=== PATIENT | female | born 1980 | race African-American/Black ===

== ENCOUNTER 2016-09-03 11:16 | Emergency (ER) | payer MEDICAID, OTHER ==
[~2016-09-03] VITALS: Ht 172.7 cm; Wt 100.0 kg
[2016-09-03 11:19] VITALS: BP 184/90; PULSE 87; RESP 17; TEMP 97.9; O2SAT 98
[2016-09-03 11:35] LABS: MEAN CORPUSCULAR HGB CONC 28.5 % (32.0-36.0)
--- NOTE | 2016-09-03 11:43 | PD ---
HPI Chief Complaint: Abdominal Pain Time Seen by Provider: 11:39 Travel History International Travel<30 days: No Contact w/Intl Traveler<30days: No History of Present Illness HPI Patient's 36-year-old female presenting to emergency department for evaluation of lower abdominal pain. Patient states pain is ongoing for several days however is worse today. She states is crampy in nature, her pain is a 4 out of 10. She also reports heavy vaginal discharge that is yellow-green in color with a slight odor to it. She also reports urinary frequency and slight dysuria. She denies any nausea, vomiting, fever, chills, chest pain, shortness of breath. Her last menstrual period was 2 weeks ago. Patient had a bilateral tubal ligation. She denies any significant past medical history. [facility] Past Medical History Medical History: Denies Significant Hx Past Surgical History Gynecologic Surgery: Yes (BTL) Social History Alcohol Use: No Tobacco Use: No Substance Use: No Allergies-Medications (Allergen,Severity, Reaction): Coded Allergies: No Known Allergies (Verified , 09/03/16) Reported Meds & Prescriptions Reported Meds & Active Scripts Active Keflex (Cephalexin) 500 Mg Cap 500 Mg PO Q12H Review of Systems Except as stated in HPI: all other systems reviewed are Neg General / Constitutional: No: Fever, Chills HENT: No: Headaches Cardiovascular: No: Chest Pain or Discomfort Respiratory: No: Shortness of Breath Gastrointestinal: Positive: Abdominal Pain, No: Nausea, Vomiting, Diarrhea Genitourinary: Positive: Frequency, Dysuria, Discharge Neurologic: No: Focal Abnormalities Physical Exam Narrative GENERAL: Developed, well nourished, alert female. Resting comfortably in no acute distress. SKIN: Warm and dry. HEAD: Atraumatic. Normocephalic. EYES: Pupils equal and round. No scleral icterus. No injection or drainage. ENT: No nasal bleeding or discharge. Mucous membranes pink and moist. NECK: Trachea midline. No JVD. CARDIOVASCULAR: Regular rate and rhythm. No murmur appreciated. RESPIRATORY: No accessory muscle use. Clear to auscultation. Breath sounds equal bilaterally. GASTROINTESTINAL: Abdomen soft, tender to palpation in suprapubic region, nondistended. Hepatic and splenic margins not palpable. Positive bowel sounds. MUSCULOSKELETAL: No obvious deformities. No clubbing. No cyanosis. No edema. NEUROLOGICAL: Awake and alert. No obvious cranial nerve deficits. Motor grossly within normal limits. Normal speech. PSYCHIATRIC: Appropriate mood and affect; insight and judgment normal. GENITOURINARY: Yellow/green discharge noted in vaginal vault. Positive cervical motion tenderness. Data Data Last Documented VS Vital Signs Date Time Temp Pulse Resp B/P Pulse Ox O2 Delivery O2 Flow Rate FiO2 09/03/16 11:19 97.9 87 17 184/90 98 Orders Complete Blood Count With Diff (09/03/16 11:34) Comprehensive Metabolic Panel (09/03/16 11:34) Gc And Chlamydia Pcr (09/03/16 11:34) Wet Prep Profile (09/03/16 11:34) Urinalysis - C+S If Indicated (09/03/16 11:34) Iv Access Insert/Monitor (09/03/16 11:34) Sodium Chloride 0.9% Flush (Ns Flush) (09/03/16 11:45) Ed Urine Pregnancytest Poc (09/03/16 11:34) Urine Culture (09/03/16 11:45) Us Pelvis Comp W Dop Transvag (09/03/16 ) Metronidazole (Flagyl) (09/03/16 13:15) Ondansetron Odt (Zofran Odt) (09/03/16 13:15) Labs Laboratory Tests Test 09/03/16 09/03/16 11:45 12:30 White Blood Count 7.8 TH/MM3 Red Blood Count 5.29 MIL/MM3 Hemoglobin 8.0 GM/DL Hematocrit 28.1 % Mean Corpuscular Volume 53.2 FL Mean Corpuscular Hemoglobin 15.1 PG Mean Corpuscular Hemoglobin 28.5 % Concent Red Cell Distribution Width 25.4 % Platelet Count 188 TH/MM3 Mean Platelet Volume 9.8 FL Neutrophils (%) (Auto) 61.0 % Lymphocytes (%) (Auto) 29.4 % Monocytes (%) (Auto) 7.7 % Eosinophils (%) (Auto) 1.2 % Basophils (%) (Auto) 0.7 % Neutrophils # (Auto) 4.7 TH/MM3 Lymphocytes # (Auto) 2.3 TH/MM3 Monocytes # (Auto) 0.6 TH/MM3 Eosinophils # (Auto) 0.1 TH/MM3 Basophils # (Auto) 0.1 TH/MM3 CBC Comment AUTO DIFF Differential Comment AUTO DIFF CONFIRMED Platelet Estimate NORMAL Platelet Morphology Comment ENLARGED Urine Color YELLOW Urine Turbidity CLEAR Urine pH 6.0 Urine Specific Mcgrady 1.018 Urine Protein NEG mg/dL Urine Glucose (UA) NEG mg/dL Urine Ketones NEG mg/dL Urine Occult Blood NEG Urine Nitrite NEG Urine Bilirubin NEG Urine Urobilinogen LESS THAN 2.0 MG/DL Urine Leukocyte Esterase LARGE Urine RBC 1 /hpf Urine WBC 9 /hpf Urine Squamous Epithelial <1 /hpf Cells Urine Bacteria OCC /hpf Urine Mucus FEW /lpf Microscopic Urinalysis Comment CULTURE INDICATED Sodium Level 139 MEQ/L Potassium Level 3.9 MEQ/L Chloride Level 106 MEQ/L Carbon Dioxide Level 25.3 MEQ/L Anion Gap 8 MEQ/L Blood Urea Nitrogen 7 MG/DL Creatinine 0.76 MG/DL Estimat Glomerular Filtration 103 ML/MIN Rate Random Glucose 114 MG/DL Calcium Level 8.5 MG/DL Total Bilirubin 0.3 MG/DL Aspartate Amino Transf 14 U/L (AST/SGOT) Alanine Aminotransferase 13 U/L (ALT/SGPT) Alkaline Phosphatase 73 U/L Total Protein 7.7 GM/DL Albumin 3.5 GM/DL Clue Cells (Wet Prep) NONE SEEN Vaginal Trichomonas (Wet Prep) PRESENT Vaginal Yeast (Wet Prep) NONE SEEN MDM Medical Decision Making Medical Screen Exam Complete: Yes Emergency Medical Condition: Yes Interpretation(s) Last Impressions Abdomen/Pelvis/Transvag US 09/03/16 0000 Signed Impressions: Service Date/Time: Saturday, September 03, 2016 12:52 - CONCLUSION: 1. No acute abnormality is identified. 2. There is a 3.1 cm solid mass in the left aspect of the uterine fundus. Imaging features are characteristic of an intramural leiomyoma. Jalil Lynch MD Laboratory Tests Test 09/03/16 09/03/16 11:45 12:30 White Blood Count 7.8 TH/MM3 Red Blood Count 5.29 MIL/MM3 Hemoglobin 8.0 GM/DL Hematocrit 28.1 % Mean Corpuscular Volume 53.2 FL Mean Corpuscular Hemoglobin 15.1 PG Mean Corpuscular Hemoglobin 28.5 % Concent Red Cell Distribution Width 25.4 % Platelet Count 188 TH/MM3 Mean Platelet Volume 9.8 FL Neutrophils (%) (Auto) 61.0 % Lymphocytes (%) (Auto) 29.4 % Monocytes (%) (Auto) 7.7 % Eosinophils (%) (Auto) 1.2 % Basophils (%) (Auto) 0.7 % Neutrophils # (Auto) 4.7 TH/MM3 Lymphocytes # (Auto) 2.3 TH/MM3 Monocytes # (Auto) 0.6 TH/MM3 Eosinophils # (Auto) 0.1 TH/MM3 Basophils # (Auto) 0.1 TH/MM3 CBC Comment AUTO DIFF Differential Comment AUTO DIFF CONFIRMED Platelet Estimate NORMAL Platelet Morphology Comment ENLARGED Urine Color YELLOW Urine Turbidity CLEAR Urine pH 6.0 Urine Specific Mcgrady 1.018 Urine Protein NEG mg/dL Urine Glucose (UA) NEG mg/dL Urine Ketones NEG mg/dL Urine Occult Blood NEG Urine Nitrite NEG Urine Bilirubin NEG Urine Urobilinogen LESS THAN 2.0 MG/DL Urine Leukocyte Esterase LARGE Urine RBC 1 /hpf Urine WBC 9 /hpf Urine Squamous Epithelial <1 /hpf Cells Urine Bacteria OCC /hpf Urine Mucus FEW /lpf Microscopic Urinalysis Comment CULTURE INDICATED Sodium Level 139 MEQ/L Potassium Level 3.9 MEQ/L Chloride Level 106 MEQ/L Carbon Dioxide Level 25.3 MEQ/L Anion Gap 8 MEQ/L Blood Urea Nitrogen 7 MG/DL Creatinine 0.76 MG/DL Estimat Glomerular Filtration 103 ML/MIN Rate Random Glucose 114 MG/DL Calcium Level 8.5 MG/DL Total Bilirubin 0.3 MG/DL Aspartate Amino Transf 14 U/L (AST/SGOT) Alanine Aminotransferase 13 U/L (ALT/SGPT) Alkaline Phosphatase 73 U/L Total Protein 7.7 GM/DL Albumin 3.5 GM/DL Clue Cells (Wet Prep) NONE SEEN Vaginal Trichomonas (Wet Prep) PRESENT Vaginal Yeast (Wet Prep) NONE SEEN Vital Signs Date Time Temp Pulse Resp B/P Pulse Ox O2 Delivery O2 Flow Rate FiO2 09/03/16 11:19 97.9 87 17 184/90 98 Differential Diagnosis UTI versus BV versus STD versus pyelonephritis versus colitis versus other Narrative Course Patient is a 36-year-old female presented to emergency for evaluation of suprapubic pain, painful intercourse, vaginal discharge and dysuria. Pelvic pain started several days ago the patient reports painful intercourse over the last month. She denies any risky sexual practices, she is in a monogamous relationship. Pelvic exam was positive for cervical motion tenderness, green frothy discharge. Wet prep, GC and chlamydia sent and pending. Wet prep was negative for clue cells positive for trichomoniasis, negative for yeast. Patient will be treated with metronidazole 2 g 1 dose. Discussed test results in private with patient. Discussed treating her empirically for chlamydia and gonorrhea or waiting for the test results to come back. Patient preferred to be treated empirically at this time. Pelvic ultrasound shows no acute findings, uterine leiomyoma noted. She was advised follow-up with her route sales associate regarding leiomyoma. Patient was advised to avoid sexual contact until her partner has been treated. Furthermore she was advised to avoid alcohol intake for at least 24-48 hours. Patient verbalized understanding of these instructions. Patient is stable for discharge. Diagnosis Primary Impression: Trichomonas vaginitis Additional Impression: UTI (urinary tract infection) Qualified Code: N39.0 - Urinary tract infection without hematuria, site unspecified Referrals: [facility] Primary Care Physician Patient Instructions: General Instructions, Trichomoniasis (ED), Urinary Tract Infection in Women (ED) Additional Instructions: Follow-up with your primary doctor Follow-up with her route sales associate Avoid sexual contact with partner until partner has been treated Avoid alcohol for 24-48 hours Return to emergency department for any new or worsening symptoms Med/Other Pt SpecificInfo: Prescription(s) given Scripts Cephalexin (Keflex)500 Mg Kaw852 Mg PO Q12H #14 CAP Ref 0 Prov:Rebekah Lopez 09/03/16 Disposition: 01 DISCHARGE HOME Condition: Stable Rebekah Lopez Sep 03, 2016 11:43
[2016-09-03] MEDS ORDERED: SODIUM CHLORIDE 0.9% FLUSH 5 ML FLUSH IVF PRN (11:45)
[2016-09-03 11:56] LABS: AUTOMATED NEUTROPHIL # 4.7 TH/MM3 (1.8-7.7); BASOPHIL # 0.1 TH/MM3 (0-0.2); BASOPHIL % 0.7 % (0.0-2.0); EOSINOPHIL # 0.1 TH/MM3 (0-0.4); EOSINOPHIL % 1.2 % (0.0-4.0); HEMATOCRIT 28.1 % (35.0-46.0); LYMPH % 29.4 % (9.0-44.0); LYMPHOCYTE # 2.3 TH/MM3 (1.0-4.8); MEAN CELL VOLUME 53.2 FL (80.0-100.0); MEAN CORPUSCULAR HEMOGLOBIN 15.1 PG (27.0-34.0); MONO % 7.7 % (0.0-8.0); PLATELET COUNT 188 TH/MM3 (150-450); RED BLOOD COUNT 5.29 MIL/MM3 (4.00-5.30); RED CELL DISTRIBUTION WIDTH 25.4 % (11.6-17.2); WHITE BLOOD COUNT 7.8 TH/MM3 (4.0-11.0)
[2016-09-03 11:57] LABS: HEMO FLAGS AUTO DIFF
[2016-09-03 12:02] LABS: BACTERIA, URINE OCC /hpf; BLOOD, URINE NEG (NEG); COMMENT (UR) CULTURE INDICATED; CULTURE IF INDICATED CULTURE INDICATED; GLUCOSE,URINE NEG (NEG); KETONE, URINE NEG (NEG); MUCUS URINE FEW /lpf (OCC); NITRITE,URINE NEG (NEG); SQUAMOUS EPITHELIAL CELL URINE <1 /hpf (0-5); URINE COLOR YELLOW (YELLW/STRAW)
[2016-09-03 12:11] LABS: ALT (GPT) 13 U/L (10-53); ANION GAP 8 MEQ/L (5-15); AST (GOT) 14 U/L (15-37); BICARBONATE 25.3 MEQ/L (21.0-32.0); BLOOD UREA NITROGEN 7 MG/DL (7-18); CHLORIDE 106 MEQ/L (98-107); GLOMERULAR FILTRATION RATE 103 ML/MIN (>89); POTASSIUM 3.9 MEQ/L (3.5-5.1); SODIUM (NA) 139 MEQ/L (136-145)
[2016-09-03 12:13] LABS: ALKALINE PHOSPHATASE 73 U/L (45-117); TOTAL BILIRUBIN ADULT 0.3 MG/DL (0.2-1.0)
[2016-09-03 12:22] LABS: PLATELET ESTIMATE SMEAR NORMAL (NORMAL); PLATELET MORPHOLOGY ENLARGED (NORMAL); SCAN/DIFF AUTO DIFF CONFIRMED
[2016-09-03] MEDS ORDERED: ONDANSETRON ODT 4 MG TAB PO ONE (13:15)
[2016-09-03] MEDS ORDERED: metroNIDAZOLE 500 MG TAB PO ONE (13:15)
--- NOTE | 2016-09-03 13:54 | RADRPT ---
EXAM DATE/TIME: 09/03/2016 12:52 [facility] COMPARISON: No previous studies available for comparison. INDICATIONS : Pelvic pain. MEDICAL HISTORY : SURGICAL HISTORY : Tubal ligation. ENCOUNTER: Initial ACUITY: 4-6 days PAIN SCORE: 5/10 LOCATION: Bilateral pelvis MEASUREMENTS: UTERUS: 10.4 x 7.3 x 5.5 cm ENDOMETRIAL STRIPE: 4 mm RIGHT OVARY: 4.4 x 2.2 x 2.0 cm LEFT OVARY: 2.8 x 3.0 x 2.5 cm FINDINGS: UTERUS: Uterus is anteverted. There is a nabothian cyst within the cervix measuring 2.1 cm. It contains low l evel internal echoes. No endometrial abnormality is identified. There is a mildly hypoechoic mass in the left fundus measuring 3.1 x 2.9 x 3.2 cm. It is primarily intramural but slightly abuts the endom etrium. RIGHT OVARY: Ovary contains no mass or significant cystic lesion. Follicles are present. Normal Doppler flow is d ocumented. LEFT OVARY: Ovary contains no mass or significant cystic lesion. Follicles are present. Normal Doppler flow is d ocumented. MISCELLANEOUS: No free fluid. CONCLUSION: 1. No acute abnormality is identified. 2. There is a 3.1 cm solid mass in the left aspect of the uterine fundus. Imaging features are charac teristic of an intramural leiomyoma. Jalil Lynch MD on September 03, 2016 at 13:50 Board Certified Radiologist. This report was verified electronically.
[2016-09-03] MEDS ORDERED: CEPH-460 PO (14:06)
[2016-09-03] MEDS ORDERED: AZITHROMYCIN 250 MG TAB PO ONE (14:15)
[2016-09-03] MEDS ORDERED: LIDOCAINE HCL 1% 50 ML VIAL IM ONE (14:15)
[2016-09-03 15:27] LABS: CHLAMYDIA PCR NOT DETECTED (NOT DETECT); NEISSERIA PCR NOT DETECTED (NOT DETECT)
== END 2016-09-03 15:00 | disposition home or self-care (01) ==
LOC: NEPE 11:16
DX: N39.0 Urinary tract infection, site not specified (principal); A59.01 Trichomonal vulvovaginitis
CPT/HCPCS: 76830; 76856; 80053; 81001; 84703; 85025; 86403; 87086; 87210; 87491; 87591; 93975; 96372; 99284; J0696